=== PATIENT | female | born 1940 | race Caucasian/White ===

== ENCOUNTER 2020-12-24 06:16 | Outpatient (CLI) | payer SELFPAY ==
[~2020-12-24 06:16] MED LIST: ASPI-611 PO; BETA1TAB18 PO; CHOL10002 PO; CLOP75TA15 PO; EVOL140S2 SQ; EXEN2VIA SUBCUT; LANTUS SQ; LOSA1TAB3 PO; MAGN400C PO; NITR0.4T51 SL; NITR1PAT63 TD; OMEG1CAP2 PO
== END 2020-12-24 23:59 | disposition home or self-care (01) ==
LOC: HW VAS 06:16
DX: Z13.6 Encounter for screening for cardiovascular disorders (principal)

== ENCOUNTER 2022-05-27 12:12 | Day surgery (SDC) | payer MEDICARE, BC ==
[2022-05-22 09:48] LABS: BASOPHILS # (AUTO) 0.1 X10'3 (0-0.2); BASOPHILS % (AUTO) 1.3 % (0-1); EOSINOPHILS # (AUTO) 0.3 X10'3 (0-0.9); EOSINOPHILS % (AUTO) 2.9 % (0-6); HEMATOCRIT 37.4 % (35.0-45.0); HEMOGLOBIN 12.6 g/dl (12.0-16.0); LYMPHOCYTES % (AUTO) 9.4 % (21-51); MEAN CORPUSCULAR HEMOGLOBIN 30.6 PG (27.0-31.0); MEAN CORPUSCULAR HGB CONC 33.8 g/dL (33.0-36.5); MEAN CORPUSCULAR VOLUME 90.6 FL (78-98); MEAN PLATELET VOLUME 8.6 FL (7.4-10.4); MONOCYTES # (AUTO) 1.1 X10'3 (0-0.9); MONOCYTES % (AUTO) 9.9 % (2-12); NEUTROPHILS # (AUTO) 8.4 X10'3 (1.8-7.7); NEUTROPHILS % (AUTO) 76.5 % (42-75); PLATELET COUNT 230 X10'3 (140-440); RED BLOOD COUNT 4.13 X10'6 (4.20-5.60); RED CELL DISTRIBUTION WIDTH 13.7 % (11.5-14.5); WHITE BLOOD COUNT 10.9 X10'3 (4.5-11.0)
[2022-05-22 09:52] LABS: APTT 34 SECONDS (22-32)
[2022-05-22 09:54] LABS: ALBUMIN 2.8 G/DL (3.4-5.0); ANION GAP 11 (8-16); BLOOD UREA NITROGEN 23 MG/DL (7-18); BUN/CREATININE RATIO 19.2 (6.6-38.0); CALCIUM 9.4 MG/DL (8.5-10.1); CHLORIDE 105 MMOL/L (99-107); CHOL/HDL RATIO 4.4 (0.00-4.99); CHOLESTEROL 224 MG/DL (0-200); GLUCOSE 88 MG/DL (70-104); HDL CHOLESTEROL 51 MG/DL (35-60); LDL CHOLESTEROL 157 MG/DL (50-100); POTASSIUM 4.3 MMOL/L (3.5-5.1); SODIUM 135 MMOL/L (135-145); TOTAL CARBON DIOXIDE 19.3 MMOL/L (24-32); TRIGLYCERIDES 48 MG/DL (20-135); eGFR 43 ML/MIN
[~2022-05-27] VITALS: Ht 167.6 cm; Wt 100.3 kg
[2022-05-27] VITALS (7 sets, daily range): BP systolic 98–168; BP diastolic 62–88
[2022-05-27] MEDS ORDERED: APIX5TAB3 PO (14:01)
[2022-05-27] MEDS ORDERED: INSU100I71 SUBCUT (14:01)
[2022-05-27] MEDS ORDERED: METO-539 PO (14:01)
[2022-05-27] MEDS ORDERED: fentaNYL/PF 50MCG/1 ML 2ML syringe ONE (15:17)
[2022-05-27] MEDS ORDERED: iohexol 350MG/ML 100ml bottle IV ONE (15:17)
[2022-05-27] MEDS ORDERED: midazolam 1 mg/ML 2ml injection ONE (15:17)
[2022-05-27] MEDS ORDERED: LIDOcaine 1% 30ml preserv. free vial ONE (15:17)
[2022-05-27] MEDS: diphenhydrAMINE 25mg capsule PO PRN (15:23)
[2022-05-27] MEDS: normal saline 1,000 ML IV SCH (15:24)
[2022-05-27] MEDS ORDERED: DOBUTamine-DoBUTrex 500mg/D5W 250 ML IV ONE (16:15)
[2022-05-27 17:29] LABS: ISTAT HGB ART 12.9 g/dl (12.0-16.0); ISTAT Hct ART 38 %PCV (35-48); ISTAT O2 SATURATION ARTERIAL 91 % (95-98); ISTAT SOURCE ART
[2022-05-27] MEDS ORDERED: acetaminophen 325mg tablet PO ONE (19:30)
[2022-05-28 08:13] LABS: ISTAT Hct MIX 38 %PCV (35-48); ISTAT O2 SATURATION MIX VENOUS 61 % (60-80); ISTAT SOURCE VEN
== END 2022-05-27 19:55 | disposition home or self-care (01) ==
LOC: SSTAY O 12:12
PROVIDERS: ATTEND Student in an Organized Health Care Education/Training Program
DX: I35.0 Nonrheumatic aortic (valve) stenosis (principal); I25.10 Atherosclerotic heart disease of native coronary artery without angina pectoris; E78.00 Pure hypercholesterolemia, unspecified; E11.9 Type 2 diabetes mellitus without complications; I13.0 Hypertensive heart and chronic kidney disease with heart failure and stage 1 through stage 4 chronic kidney disease, or unspecified chronic kidney disease; E11.22 Type 2 diabetes mellitus with diabetic chronic kidney disease; N18.9 Chronic kidney disease, unspecified; I50.9 Heart failure, unspecified
CPT/HCPCS: 36415; 80048; 80061; 82803; 82948; 85014; 85025; 85610; 85730; 93005; 93460; C1760; C1769; C1894; J1250; J1644; J2250; J3010; J3490; J7030; Q0163; Q9967; 99152; 99153; A4620; A6258

== ENCOUNTER 2022-06-27 08:58 | Outpatient (CLI) | payer MEDICARE, BC ==
[~2022-06-27 08:58] MED LIST changes: +APIX5TAB3 PO; -ASPI-611 PO; -CLOP75TA15 PO; -EVOL140S2 SQ; -EXEN2VIA SUBCUT; +INSU100I71 SUBCUT; -LANTUS SQ; -MAGN400C PO; +METO-539 PO
[2022-06-27] MEDS ORDERED: IODIXANOL 320 MG/ML INFUS..BTL 100ML IV ONE (09:26)
[2022-06-27 09:52] LABS: BASOPHILS # (AUTO) 0.2 X10'3 (0-0.2); EOSINOPHILS # (AUTO) 0.2 X10'3 (0-0.9); EOSINOPHILS % (AUTO) 2.6 % (0-6); HEMOGLOBIN 12.9 g/dl (12.0-16.0); LYMPHOCYTES # (AUTO) 0.8 X10'3 (1.1-4.8); LYMPHOCYTES % (AUTO) 10.3 % (21-51); MEAN CORPUSCULAR HEMOGLOBIN 29.9 PG (27.0-31.0); MEAN CORPUSCULAR VOLUME 90.8 FL (78-98); MEAN PLATELET VOLUME 8.6 FL (7.4-10.4); MONOCYTES # (AUTO) 0.8 X10'3 (0-0.9); MONOCYTES % (AUTO) 10.1 % (2-12); NEUTROPHILS # (AUTO) 5.7 X10'3 (1.8-7.7); PLATELET COUNT 228 X10'3 (140-440); RED CELL DISTRIBUTION WIDTH 14.5 % (11.5-14.5); WHITE BLOOD COUNT 7.6 X10'3 (4.5-11.0)
[2022-06-27 10:06] LABS: APTT 36 SECONDS (22-32)
[2022-06-27 10:09] LABS: ALANINE AMINOTRANSFERASE 13 U/L (12-78); ALBUMIN 2.7 G/DL (3.4-5.0); ALBUMIN/GLOBULIN RATIO 0.6 (1.1-1.5); ALKALINE PHOSPHATASE 76 IU/L (46-116); ANION GAP 8 (8-16); ASPARTATE AMINO TRANSFERASE 15 U/L (10-37); BILIRUBIN,TOTAL 0.4 MG/DL (0.1-1.0); BLOOD UREA NITROGEN 25 MG/DL (7-18); BUN/CREATININE RATIO 18.9 (6.6-38.0); CHLORIDE 103 MMOL/L (99-107); CREATININE 1.32 MG/DL (0.40-0.90); GLUCOSE 185 MG/DL (70-104); POTASSIUM 4.3 MMOL/L (3.5-5.1); SODIUM 137 MMOL/L (135-145); TOTAL PROTEIN 7.2 G/DL (6.4-8.2); eGFR 38 ML/MIN
== END 2022-06-27 23:59 | disposition home or self-care (01) ==
LOC: RT 08:58
PROVIDERS: ATTEND Internal Medicine Cardiovascular Disease
DX: Z01.818 Encounter for other preprocedural examination (principal); I70.0 Atherosclerosis of aorta; K44.9 Diaphragmatic hernia without obstruction or gangrene; K76.0 Fatty (change of) liver, not elsewhere classified; K57.30 Diverticulosis of large intestine without perforation or abscess without bleeding; K42.9 Umbilical hernia without obstruction or gangrene; I25.10 Atherosclerotic heart disease of native coronary artery without angina pectoris; K86.89 Other specified diseases of pancreas; M47.817 Spondylosis without myelopathy or radiculopathy, lumbosacral region; M47.814 Spondylosis without myelopathy or radiculopathy, thoracic region; I35.0 Nonrheumatic aortic (valve) stenosis; I65.29 Occlusion and stenosis of unspecified carotid artery; Z79.899 Other long term (current) drug therapy; Z90.710 Acquired absence of both cervix and uterus
CPT/HCPCS: 36415; 71046; 71275; 74174; 80053; 85025; 85610; 85730; 87811; 94010; 94727; 94729; J3490; Q9967

== ENCOUNTER 2022-08-21 06:27 | Inpatient (IN) | payer MEDICARE, BC ==
[2022-08-14 11:47] LABS: BASOPHILS # (AUTO) 0.1 X10'3 (0-0.2); BASOPHILS % (AUTO) 1.4 % (0-1); EOSINOPHILS # (AUTO) 0.3 X10'3 (0-0.9); EOSINOPHILS % (AUTO) 3.2 % (0-6); LYMPHOCYTES % (AUTO) 12.1 % (21-51); MEAN CORPUSCULAR HEMOGLOBIN 30.4 PG (27.0-31.0); MEAN CORPUSCULAR HGB CONC 32.8 g/dL (33.0-36.5); MEAN CORPUSCULAR VOLUME 92.7 FL (78-98); MEAN PLATELET VOLUME 8.9 FL (7.4-10.4); MONOCYTES # (AUTO) 0.9 X10'3 (0-0.9); MONOCYTES % (AUTO) 10.8 % (2-12); NEUTROPHILS # (AUTO) 6.1 X10'3 (1.8-7.7); NEUTROPHILS % (AUTO) 72.5 % (42-75); PRE OP HEMOGLOBIN 13.4 g/dL (12.0-16.0); PRE OP PLATELET COUNT 236 X10'3 (140-440); RED BLOOD COUNT 4.42 X10'6 (4.20-5.60); RED CELL DISTRIBUTION WIDTH 14.6 % (11.5-14.5)
[2022-08-14 11:49] LABS: CLARITY,URINE CLEAR (Clear); COLOR,URINE YELLOW (Yellow); GLUCOSE, URINE NEGATIVE (Neg); KETONES,URINE NEGATIVE (Neg); LEUKOCYTE ESTERASE ,URINE SMALL (Neg); NITRITES, URINE NEGATIVE (Neg); OCCULT BLOOD,URINE NEGATIVE (Neg); PROTEIN,URINE NEGATIVE (Neg); UROBILINOGEN,URINE 0.2 E.U/dL (0.2-1.0)
[2022-08-14 11:52] LABS: UA COLLECTION TYPE CLN CATCH MIDSTREAM
[2022-08-14 12:00] LABS: PRE OP INR 1.1 INR; PRE OP PROTIME 11.4 SECONDS (9.0-12.0)
[2022-08-14 12:03] LABS: ALBUMIN/GLOBULIN RATIO 0.7 (1.1-1.5); ALKALINE PHOSPHATASE 94 IU/L (46-116); BLOOD UREA NITROGEN 25 MG/DL (7-18); BUN/CREATININE RATIO 21.6 (6.6-38.0); CALCIUM 9.7 MG/DL (8.5-10.1); CHLORIDE 103 MMOL/L (99-107); CREATININE 1.16 MG/DL (0.40-0.90); PRE OP ALT 31 U/L (30-65); PRE OP ANION GAP 7 (8-16); PRE OP AST 25 U/L (10-37); PRE OP BILIRUB, TOTAL 0.4 MG/DL (0.0-1.0); PRE OP GLUCOSE 126 MG/DL (70-104); PRE OP POTASSIUM 4.5 MMOL/L (3.4-5.1); PRE OP SODIUM 136 MMOL/L (135-145); TOTAL CARBON DIOXIDE 26.1 MMOL/L (24-32); TOTAL PROTEIN 7.3 G/DL (6.4-8.2); eGFR 45 ML/MIN
[2022-08-14 12:07] LABS: BACTERIA,URINE FEW /HPF (Neg); SQUAMOUS EPITHELIAL CELL,UR FEW /LPF (FEW)
[2022-08-14 12:08] LABS: RBC,URINE 0-2 /HPF (0-2); TRANSITIONAL EPI CELLS,URINE FEW /HPF; WBC,URINE 0-4 /HPF (0-4)
[2022-08-14 12:09] LABS: HEMOGLOBIN A1C 6.8 % (4.5-6.2)
[2022-08-21] VITALS (28 sets, daily range): BP systolic 93–160; BP diastolic 39–69
[~2022-08-21] VITALS: Ht 167.6 cm; Wt 101.1 kg
[~2022-08-21 06:27] MED LIST changes: +DOCUMENT DATE & TIME OF BETA-BLOCKER PO ONE; -LOSA1TAB3 PO; +SACU1TAB PO; +aspirin 325mg tablet PO ONE; +ceFAZolin inj. 2,000 MG in dextrose 5%-water 100 ML IV ONE; +famotidine 20mg tablet PO ONE; +nitroPRUSSIDE (NIPRIDE) (200MCG/ML) 100ML Drip IV SCH; +ondansetron/PF 4mg/2ml inj IV PRN; +phenylephrine inj 50 MG in normal saline 250ml IV solN IV SCH; +protamine sulfate 10mg/ml inj. ONE; +ringers solution, lacted 1,000 ML IV SCH; +vancomycin 1,500 MG in NS 300ml IV soln IV ONE
[2022-08-21] MEDS ORDERED: ringers solution, lacted 1,000 ML IV SCH (08:40)
[2022-08-21] MEDS ORDERED: labetalol 20mg/4ml (5mg/ml) syringe IV PRN ×2 (08:40→11:00)
[2022-08-21] MEDS ORDERED: proCHLORperazine 10 MG/2 ml inj IV PRN ×2 (08:40→11:00)
[2022-08-21] MEDS ORDERED: ondansetron/PF 4mg/2ml inj IV PRN ×2 (08:40→11:00)
[2022-08-21] MEDS ORDERED: hydrALAZINE 20mg/ml inj. IV PRN (08:40)
[2022-08-21] MEDS ORDERED: dexmedetomidin/NS 400mcg/100ml 100 ML IV SCH (08:45)
[2022-08-21] MEDS ORDERED: iohexol 350MG/ML 100ml bottle IV ONE (08:50)
[2022-08-21] MEDS ORDERED: heparin 1,000 UNITS/NS 500ml 1,500 ML ONE (08:50)
[2022-08-21] MEDS ORDERED: LIDOcaine 1% 30ml preserv. free vial ONE (08:50)
[2022-08-21] MEDS ORDERED: iohexol 350 MG/ML 50ML vial IV ONE ×2 (08:50→08:58)
[2022-08-21] MEDS ORDERED: dexmedetomidine inj. 400 MCG in normal saline 100ml IV soln 100 ML IV SCH (09:01)
[2022-08-21] MEDS ORDERED: dexmedetomidine inj. 400 MCG in normal saline 100ml IV soln 96 ML IV SCH (09:02)
[2022-08-21] MEDS ORDERED: nitroGLYCERIN 0.4mg SUBLingual tab SL PRN (09:30)
[2022-08-21] MEDS ORDERED: acetaminophen 1,000mg/100ml IV 100 ML IV ONE (09:47)
[2022-08-21] MEDS ORDERED: ePHEDrine 50MG/ML INJ. ONE (09:47)
[2022-08-21] MEDS ORDERED: 0.9 % SODIUM CHLORIDE 10 ML VIAL ONE (09:47)
[2022-08-21] MEDS ORDERED: potassium Cl 20 mEq SR tablet PO PRN (11:00)
[2022-08-21] MEDS ORDERED: potassium CL 10mEq/100ml bag 100 ML IV PRN (11:00)
[2022-08-21] MEDS ORDERED: diphenhydrAMINE 25mg capsule PO PRN (11:00)
[2022-08-21] MEDS ORDERED: magnesium 4gm in 100ml NS 100 ML IV PRN (11:00)
[2022-08-21] MEDS ORDERED: docusate sod 100mg capsule PO PRN (11:00)
[2022-08-21] MEDS ORDERED: glucagon, human recombinant 1mg kit SUBCUT PRN (11:00)
[2022-08-21] MEDS ORDERED: DEXTROSE 15 GM of carb/4 tabs (each vial/BOTTLE has 4 tablets) PO PRN ×2 (11:00)
[2022-08-21] MEDS ORDERED: potassium Cl 40MEQ/1/2NS 520ml 520 ML IV PRN (11:00)
[2022-08-21] MEDS ORDERED: dextrose 50%-water 50ml dispensing syringe IV PRN ×2 (11:00)
[2022-08-21] MEDS ORDERED: potassium Cl 20mEq/100mL bag 100 ML IV PRN (11:00)
[2022-08-21] MEDS ORDERED: insulin Lispro (HumaLOG) vial - multi-dose SQ SCH (11:00)
[2022-08-21] MEDS ORDERED: magnesium 2GM in 50ml NS 50 ML IV PRN (11:00)
[2022-08-21] MEDS ORDERED: pantoprazole 40mg Tablet.DR PO PRN (11:00)
[2022-08-21] MEDS ORDERED: MESSAGE TO PHARMACY PO ONE (11:00)
[2022-08-21] MEDS ORDERED: potassium Cl 40MEQ/270ML bag 250 ML IV PRN (11:00)
[2022-08-21] MEDS ORDERED: ALPRAZolam 0.25mg tablet PO PRN (11:00)
--- NOTE | 2022-08-21 11:11 | NUR ---
Received from OR via BED, accompanied by Anesthesiologist DR. GARRIDO and report given by Anesthesiologist AND OR NURSE. PT ARRIVED DROWSY, ABLE TO RESPOND TO VERBAL STIMULI ON 8 L OF 02 VIA MASK. VSS. PT HAS 18 G IV TO RIGHT AC AND ART LINE TO LEFT WRIST AND PRESSURE DEVICE INTACT. PT HAS DRESSING TO LEFT GROIN THAT IS C/D/I WITH MARKED BLOOD AREA, RIGHT GROIN THAT IS C/D/I, NO SWELLING OR BLEEDING NOTED. LR AND ROLAND CURRENTLY RUNNING. NEURO ASSESSMENT COMPLETED. PUSH, PULL, BULKHEAD CARPENTER, SMILE ALL WITHIN NORMAL LIMITS. BILATERAL PEDAL PULSES NOTED VIA DOPPLER. VSS. WILL CONTINUE TO MONITOR AND RECHECK GROIN SITES. Addendum: 08/21/22 at 1151 by Marvel Javier RN Amended: Links added.
--- NOTE | 2022-08-21 11:19 | NUR ---
AGREES TO RESUSITATION IN OR. DOES NOT WISH TO BE INTUBATED AND VENTILATED POST OPERATIVELY. AGREES TO FULL CODE DURING THIS SURGERY IN THE OR AND RR. Addendum: 08/21/22 at 1142 by Zachary Priest RN, RN Amended: Links added.
[2022-08-21] MEDS: hydrALAZINE 20mg/ml inj. IV PRN ×2 (11:34→12:00)
--- NOTE | 2022-08-21 11:45 | NUR ---
PULLED LEFT RADIAL ART-LINE WITHOUT ANY DISTRESS OR DISCOMFORT. HEMOSTASIS WAS OBTAINED AFTER 10 MINUTES. DRESSING APPLIED AND C/D/I.
--- NOTE | 2022-08-21 12:11 | NUR ---
PATIENT HAS MET ALL CRITERIA FOR TRANSFER TO PCU FLOOR. VSS. DRESSINGS INTACT. BED LOW, CALL LIGHT PRESENT AND 2 RAILS UP. RN PRESENT TO ACCEPT CARE OF PATIENT AND REPORT HAS BEEN CALLED. ALL QUESTIONS ANSWERED TO ACCEPTING RN. Addendum: 08/21/22 at 1337 by Marvel Javier RN Amended: Links added.
[2022-08-21] MEDS: normal saline 1000ml 1,000 ML IV SCH ×2 (12:30→20:37)
--- NOTE | 2022-08-21 12:40 | NUR ---
Patient in room PAS IN 901. I have received report from Marvel RIVAS and had the opportunity to ask questions and assume patient care. 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 Left side DRSG just changed prior to arrival to [facility]. Addendum: 08/21/22 at 1251 by Tiara Hutchinson RN Amended: Links added.
[2022-08-21] MEDS: acetaminophen 325mg tablet PO PRN (15:26)
[2022-08-21] MEDS: ceFAZolin 1GM/D5W- ADD-VANTAGE 50 ML IV SCH (15:54)
[2022-08-21] MEDS: sod chloride 0.9% 10ml flush syringe IV SCH (15:55)
--- NOTE | 2022-08-21 17:10 | NUR ---
Pt vomited bloody emesis. She stated she was swallowing the bloody mucus from the back of her throat. Dr Gil contacted. he will come to bedside.
--- NOTE | 2022-08-21 18:25 | NUR ---
Problems reprioritized. Patient report given, questions answered & plan of care reviewed with Anabel RIVAS. Bedside report completed. Family at bedside. Addendum: 08/21/22 at 1825 by Tiara Hutchinson RN Amended: Links added.
[2022-08-21] MEDS: [UNRECOGNIZED DRUG - MIXTURE] PO SCH (20:00)
[2022-08-21] MEDS: sacubitril/valsartan 24mg-26mg tablet PO SCH (20:36)
[2022-08-21] MEDS: vancomycin/NS 1 GM ADD-VANTAGE 250 ML IV SCH (20:37)
[2022-08-21] MEDS ORDERED: insulin glargine (Lantus) pen - multi-dose SQ SCH (21:00)
[2022-08-22] VITALS: BP 148/100
[2022-08-22] MEDS: ceFAZolin 1GM/D5W- ADD-VANTAGE 50 ML IV SCH ×2 (00:14→07:29)
[2022-08-22] MEDS: sod chloride 0.9% 10ml flush syringe IV SCH ×2 (00:14→08:00)
[2022-08-22] MEDS: acetaminophen 325mg tablet PO PRN (00:21)
[2022-08-22 01:00] VITALS: BP 157/50
[2022-08-22 02:00] VITALS: BP 136/61
[2022-08-22 06:00] VITALS: BP 141/44
--- NOTE | 2022-08-22 06:24 | NUR ---
Patient in room PCU 3025. I have received report from Anabel RIVAS and had the opportunity to ask questions and assume patient care.Bedside report completed. Pt awake and states she feels good. Pt states the bleeding has stopped from back of throat. Call light in reach. Addendum: 08/22/22 at 0625 by Tiara Hutchinson RN Amended: Links added.
[2022-08-22] MEDS: normal saline 1000ml 1,000 ML IV SCH (07:00)
[2022-08-22] MEDS: sacubitril/valsartan 24mg-26mg tablet PO SCH (07:28)
[2022-08-22] MEDS ORDERED: OMEGA-3/DHA/EPA/FISH OIL 1 EACH CAPSULE.DR PO SCH (08:00)
[2022-08-22] MEDS ORDERED: cholecalciferol (vitamin D3) 1,000 unit (25mcg) tablet PO SCH (08:00)
[2022-08-22] MEDS: [UNRECOGNIZED DRUG - MIXTURE] PO SCH (08:00)
[2022-08-22] MEDS ORDERED: metoprolol succinate 25mg (24-HOUR) SR. Tablet PO SCH (08:00)
[2022-08-22 08:04] LABS: BASOPHILS # (AUTO) 0.1 X10'3 (0-0.2); BASOPHILS % (AUTO) 0.6 % (0-1); EOSINOPHILS % (AUTO) 0.2 % (0-6); HEMATOCRIT 38.7 % (35.0-45.0); HEMOGLOBIN 12.6 g/dl (12.0-16.0); LYMPHOCYTES # (AUTO) 0.8 X10'3 (1.1-4.8); LYMPHOCYTES % (AUTO) 5.4 % (21-51); MEAN CORPUSCULAR HEMOGLOBIN 30.1 PG (27.0-31.0); MEAN CORPUSCULAR HGB CONC 32.5 g/dL (33.0-36.5); MEAN CORPUSCULAR VOLUME 92.7 FL (78-98); MEAN PLATELET VOLUME 9.3 FL (7.4-10.4); MONOCYTES # (AUTO) 1.4 X10'3 (0-0.9); MONOCYTES % (AUTO) 9.9 % (2-12); NEUTROPHILS % (AUTO) 83.9 % (42-75); PLATELET COUNT 182 X10'3 (140-440); RED BLOOD COUNT 4.17 X10'6 (4.20-5.60); RED CELL DISTRIBUTION WIDTH 14.6 % (11.5-14.5); WHITE BLOOD COUNT 14.3 X10'3 (4.5-11.0)
[2022-08-22 08:28] LABS: ALANINE AMINOTRANSFERASE 23 U/L (12-78); ALBUMIN 2.7 G/DL (3.4-5.0); ALBUMIN/GLOBULIN RATIO 0.7 (1.1-1.5); ALKALINE PHOSPHATASE 89 IU/L (46-116); ANION GAP 12 (8-16); ASPARTATE AMINO TRANSFERASE 25 U/L (10-37); BILIRUBIN,TOTAL 0.8 MG/DL (0.1-1.0); BLOOD UREA NITROGEN 24 MG/DL (7-18); CHLORIDE 103 MMOL/L (99-107); GLUCOSE 156 MG/DL (70-104); MAGNESIUM 1.6 MG/DL (1.5-2.4); POTASSIUM 4.2 MMOL/L (3.5-5.1); SODIUM 136 MMOL/L (135-145); TOTAL CARBON DIOXIDE 20.9 MMOL/L (24-32); TOTAL PROTEIN 6.6 G/DL (6.4-8.2); eGFR 43 ML/MIN
[2022-08-22 11:33] VITALS: BP 130/46
[2022-08-22] MEDS: vancomycin/NS 1 GM ADD-VANTAGE 250 ML IV SCH (12:32)
--- NOTE | 2022-08-22 15:00 | NUR ---
All written and verbal orders for D/C given to Pt and . All questions answered. removed Pt PIV, Cannula intact. Pt stated she had all belongings including cell phone. All follow up appointments reviewed. Post care reviewed. Pt home with . Addendum: 08/22/22 at 1519 by Tiara Hutchinson RN Amended: Links added.
== END 2022-08-22 14:51 | disposition home or self-care (01) | DRG 266 ==
LOC: PAS IN 06:27 → PCU 3S 12:41
PROVIDERS: ADMIT Internal Medicine Cardiovascular Disease; ATTEND Internal Medicine Cardiovascular Disease
PROC: 02RF38Z Replacement of Aortic Valve with Zooplastic Tissue, Percutaneous Approach (ICD-10-PCS; 2022-08-21)
PROC: B41D1ZZ Fluoroscopy of Aorta and Bilateral Lower Extremity Arteries using Low Osmolar Contrast (ICD-10-PCS; principal; 2022-08-21 08:54)
DX: I35.0 Nonrheumatic aortic (valve) stenosis (principal); Z00.6 Encounter for examination for normal comparison and control in clinical research program; I50.23 Acute on chronic systolic (congestive) heart failure; I13.0 Hypertensive heart and chronic kidney disease with heart failure and stage 1 through stage 4 chronic kidney disease, or unspecified chronic kidney disease; N18.30 Chronic kidney disease, stage 3 unspecified; E11.22 Type 2 diabetes mellitus with diabetic chronic kidney disease; E11.51 Type 2 diabetes mellitus with diabetic peripheral angiopathy without gangrene; E78.5 Hyperlipidemia, unspecified; I25.10 Atherosclerotic heart disease of native coronary artery without angina pectoris; I49.5 Sick sinus syndrome; Z79.01 Long term (current) use of anticoagulants; Z86.73 Personal history of transient ischemic attack (TIA), and cerebral infarction without residual deficits; Z95.0 Presence of cardiac pacemaker; Z98.61 Coronary angioplasty status
CPT/HCPCS: 33361; 36415; 71045; 71046; 76937; 80053; 81001; 82948; 83036; 83735; 83880; 85025; 85347; 85610; 85730; 86885; 86900; 86901; 86920; 87081; 87088; 93005; 93308; A4618; A6258; A6449; C1760; C1769; C1892; C1894; G0378; J0131; J0360; J0690; J1644; J1815; J2370; J2720; J3370; J3490; J7030; J7040; J7050; J7060; J7120; Q9967